=== PATIENT | male | born 1950 | race Caucasian/White ===

== ENCOUNTER 2021-08-19 07:16 | Day surgery (SDC) | payer MEDICARE, BC ==
[~2021-08-19 07:16] MED LIST: Lactated Ringers 1,000 ML IV SCH
[2021-08-19] MEDS ORDERED: Propofol 200 MG/20 ML SDV ONE ×3 (08:03→09:32)
[2021-08-19] MEDS ORDERED: fentaNYL 100 MCG/2 ML SDV ONE (08:03)
[2021-08-19 10:13] VITALS: BP 110/59; PULSE 55
--- NOTE | 2021-08-19 12:17 | OR ---
PREOPERATIVE DIAGNOSIS: History of colon polyps. Last colonoscopy was 11/2015. POSTOPERATIVE DIAGNOSES: 1. Two polyps removed today. a. 8 mm sessile cecal polyp removed using hot snare x2 passes. b. 2 mm polyp at 60 cm removed using cold forceps. 2. Somewhat tortuous redundant colon. 3. Normal terminal ileum. 4. Anal verge irritation. PROCEDURE: Colonoscopy with polypectomy x2 (1 using hot snare and 1 using cold forceps). SURGEON: Stalin Jamison M.D. ANESTHESIA: Monitored anesthesia care. BOWEL PREP: Fair to good. DESCRIPTION OF PROCEDURE: Damián is a 71-year-old male who was brought to the endoscopy suite after discussing risks and benefits of the procedure. Informed consent was obtained for conscious sedation and colonoscopy with or without biopsy and/or polypectomy. We also discussed possibility of missed lesions. Pre-procedure exam was unremarkable. IV, oxygen, and monitors were placed. The patient was placed in the left lateral decubitus position. Sedation was administered and a digital rectal exam was performed and unremarkable. Colonoscope was passed into the rectum and slowly advanced all the way to the cecum. Cecum was viewed and photographed. Within the cecum, there was an 8 mm sessile polyp removed using hot snare x2 passes. Ileocecal valve was intubated and terminal ileum was normal in appearance. The colonoscope was slowly withdrawn and the mucosa was closed observed in a direct circumferential manner. The ascending colon was unremarkable. The transverse colon near hepatic flexure was remarkable for 2 mm polyp removed with cold forceps. The descending colon and sigmoid colon were unremarkable. Retroflexion was performed. Rectal mucosa revealed some mild irritation of the anal verge, which I suspect was prep induced. Scope was removed. The patient tolerated the procedure well. The patient was monitored until that baseline status. Discharge instructions were reviewed and the patient was discharged in good condition. COMPLICATIONS: None. TOTAL TIME: 37 minutes. ESTIMATED BLOOD LOSS: Less than 1 mL. RECOMMENDATIONS/FOLLOWUP: We will await results of path report to determine followup interval. I will have the patient hold his aspirin for 1 day and Plavix for 3 days to limit any chance of bleeding from the polypectomy sites. I would like to kindly thank Dr. Godoy for this referral. DMB: 08/19/2021 10:19:46 MODL: 08/19/2021 10:56:41 /[id number]
== END 2021-08-19 10:50 | disposition home or self-care (01) ==
LOC: VM.SDS 07:16
PROVIDERS: ATTEND Family Medicine
DX: Z12.11 Encounter for screening for malignant neoplasm of colon (principal); D12.0 Benign neoplasm of cecum; D12.3 Benign neoplasm of transverse colon; E78.2 Mixed hyperlipidemia; I25.10 Atherosclerotic heart disease of native coronary artery without angina pectoris; I65.23 Occlusion and stenosis of bilateral carotid arteries; I10 Essential (primary) hypertension; I25.2 Old myocardial infarction; Z98.890 Other specified postprocedural states; Z79.82 Long term (current) use of aspirin; Z79.899 Other long term (current) drug therapy; Z98.1 Arthrodesis status; Z79.01 Long term (current) use of anticoagulants
CPT/HCPCS: 00811; 45380; 45385; J2704; J3010; J7120; 88305

== ENCOUNTER 2025-05-29 11:35 | Emergency (ER) | payer MEDICARE ==
[2025-05-29 11:47] VITALS: BP 141/80; PULSE 81
== END 2025-05-29 11:53 | disposition home or self-care (01) ==
LOC: VM.ED 11:35
DX: M70.21 Olecranon bursitis, right elbow (principal); I10 Essential (primary) hypertension; I25.2 Old myocardial infarction; I25.10 Atherosclerotic heart disease of native coronary artery without angina pectoris; E78.00 Pure hypercholesterolemia, unspecified; Z79.899 Other long term (current) drug therapy; Z79.82 Long term (current) use of aspirin; W22.8XXA Striking against or struck by other objects, initial encounter
CPT/HCPCS: 99283